=== PATIENT | male | born 1955 | race Caucasian/White ===

== ENCOUNTER 2018-10-13 15:59 | Inpatient (IN) | payer OTHER ==
--- NOTE | 2018-10-13 16:41 | EDPHY ---
H & P Stated Complaint: Increased swelling under left eye for 2 days. Source: Patient Exam Limitations: No limitations - Personal History Current Tetanus Diphtheria and Acellular Pertussis (TDAP): Yes - Medical/Surgical History Hx Asthma: No Hx Chronic Respiratory Disease: No Hx Diabetes: Yes Hx Cardiac Disease: No Hx Renal Disease: No Hx Cirrhosis: No Hx Alcoholism: No Hx HIV/AIDS: No Hx Splenectomy or Spleen Trauma: No Other PMH: DM 2. - Social History Smoking Status: Current every day smoker Time Seen by Provider: 10/13/18 16:38 HPI/ROS: HPI: This is a 63-year-old male who presents with Chief Complaint: Increased swelling under left eye for 2 days. Location: left eye Quality: Redness, swelling Duration: 2 days Signs and Symptoms: no fever, no nausea, no vomiting, no photophobia, no noise sensitivity, no neck stiffness, no ear pain, no tinnitus, no nasal congestion, no sinus pressure, no weakness, no radiation, no aura, no tinnitus Timing: Acute, stable Severity: Moderate Context: Patient has a history of type 2 diabetes mellitus presents at the urging of provider at [facility] ([place], [place]) dermatology for left religion abscess that is been there several weeks and now scabbed over with 2 day history of left suborbital redness and swelling that occurred when he woke up and has remained constant. He denies any headache, sinus congestion, rhinorrhea , vision changes, eye redness, eye tearing. Modifying Factors: None Comment: ROS: A comprehensive 10 system review of systems is otherwise negative aside from elements mentioned in the history of present illness. MEDICAL/SURGICAL/SOCIAL HISTORY: Medical history: Diabetes mellitus type 2, hyperlipidemia Surgical history: Denies Social history: Smoker. Family history noncontributory. General appearance: Overweight, nontoxic-appearing elderly white male, awake and alert, cooperative. HENT: Atraumatic and normocephalic, Nares patent; no rhinorrhea; no nasal mucosal edema. Tympanic membranes clear. Oropharynx clear, no exudate and moist pink mucosa. Edentulous. Airway patent. No lymphadenopathy. No meningismus. Visual Acuity: noted from Nurse's notes. Pupils: equal round and reactive to light. EOMI Lids: no edema or swelling Skin: no proptosis, no periorbital erythema; + left suborbital swelling/ emphysema/small bubble of the subcutaneous skin. no vesicles Conjunctivae: not injected, no discharge NEUROLOGICAL: no focal neuro deficits. GCS 15. Speech clear SKIN: Warm and dry, annular, scabbed, 2 mm raised area on the left religion; no erythema. no rash. Good capillary refill. (Lizzette Yip) Constitutional: Initial Vital Signs Temperature (C) 36.6 C 10/13/18 16:03 Heart Rate 88 10/13/18 16:03 Respiratory Rate 16 10/13/18 16:03 Blood Pressure 154/88 H 10/13/18 16:03 O2 Sat (%) 95 10/13/18 16:03 O2 Delivery Mode Room Air Allergies/Adverse Reactions: No Known Allergies Allergy (Unverified 10/13/18 16:06) Home Medications: Medication Instructions Recorded Atorvastatin Calcium [Lipitor 40 40 mg PO DAILY 10/13/18 mg (*)] metFORMIN SR [Glucophage XR 750 mg 750 mg PO DAILY@1800 10/13/18 (*)] Medical Decision Making Procedures: Procedure: Abscess drainage. The patient's abscess was located on the face. Risks, benefits, alternatives discussed with the patient and consent obtained. The abscess was incised with a #11 blade and a moderate amount of purulent drainage was expressed. The wound was irrigated and packed. The patient tolerated the procedure well. The procedure was performed by myself. Wound culture sent. (Melody Villafana) ED Course/Re-evaluation: Vital signs reviewed and shows mild elevated blood pressure upon arrival. IV access, laboratory studies, CT maxillofacial scan ordered 1715: Labs reviewed. WBC 12 K, sodium 130, creatinine 0.8, glucose 442 No signs of DKA. 1725: End of shift. Signed over to Dr. Villafana pending CT scan results and final disposition. This patient was seen under the supervision of my secondary supervising physician. I evaluated care for this patient attending. (Lizzette Yip) 1800: CT scan reveals a left temporal abscess with surrounding cellulitis extending into the periorbital area. The results were discussed with the patient. Abscess I+D performed by me. Wound culture sent. Dilaudid 0.5mg IV and Zofran 4mg IV for pain relief during procedure. Blood cultures were drawn and Vancomycin 1gm IV given. Does not meet SIRS criteria, lactate normal. The hospitalist service was consulted for admission. (Melody Villafana) Differential Diagnosis: Differential diagnosis includes but is not limited to left religion abscess, sinusitis, suborbital cellulitis. (Lizzette Yip) - Data Points Laboratory Results: Laboratory Results 10/13/18 16:45 10/13/18 16:45 Microbiology Results: MICROBIOLOGY 10/13/18 17:58 Face - Swab Gram Stain - Final Medications Given: Atorvastatin Calcium (Lipitor) 40 mg PO DAILY DARIN Stop: 04/12/19 08:59 Last Admin: 10/14/18 09:57 Dose: 40 mg Vancomycin HCl 1.5 gm/ Sodium (Chloride) 250 mls @ 166.667 mls/hr IV Q12H DARIN Stop: 11/13/18 04:59 Last Admin: 10/14/18 05:04 Dose: 250 mls Insulin Human Lispro (Humalog Lispro) 0 unit SC TIDMEAL DARIN PRN Reason: Protocol Stop: 04/12/19 07:59 Last Admin: 10/14/18 08:11 Dose: Not Given Discontinued Medications Hydromorphone HCl (Dilaudid) 1 mg IVP EDNOW ONE Stop: 10/13/18 17:58 Last Admin: 10/13/18 17:58 Dose: 1 mg Vancomycin/Sodium Chloride (Vancomycin 1 Gm (Premix)) 250 mls @ 250 mls/hr IV EDNOW ONE PRN Reason: Protocol Stop: 10/13/18 19:03 Last Admin: 10/13/18 18:55 Dose: 250 mls Piperacillin/Tazobactam/Dextrose (Zosyn 3.375 Gm (Premix)) 50 mls @ 100 mls/hr IV EDNOW ONE PRN Reason: Protocol Stop: 10/13/18 18:30 Last Admin: 10/13/18 18:30 Dose: 50 mls Sodium Chloride (Ns) 1,000 mls @ 3,000 mls/hr IV ONCE ONE Stop: 10/13/18 19:21 Last Admin: 10/13/18 22:04 Dose: 1,000 mls Point of Care Test Results: Chemistry 10/13/18 17:09 POC Sodium 134 mEq/L L mEq/L (135-145) POC Potassium 4.0 mEq/L mEq/L (3.3-5.0) POC Chloride 94 mEq/L L mEq/L (97-110) POC Total CO2 24 mEq/L mEq/L (22-31) POC BUN 18 mg/dL mg/dL (7-23) POC Creatinine 0.7 mg/dL mg/dL (0.7-1.3) POC Glucose 443 mg/dL H mg/dL (70-100) ISTAT H&H 10/13/18 17:09 POC Hgb 16.0 gm/dL gm/dL (13.7-17.5) POC Hct 47 % % (40-51) Departure - Departure Disposition: [facility] Inpatient Acute Clinical Impression: Cellulitis and abscess of face Condition: Fair
[2018-10-13 17:10] LABS: PLATELET COUNT 183 10^3/uL (150-400)
[2018-10-13] MEDS ORDERED: HYDROmorphONE/DILAUDID 1 MG/ML INJ ONE (17:55)
[2018-10-13] MEDS ORDERED: HYDROmorphONE/DILAUDID 1 MG/ML INJ IVP ONE (17:57)
[2018-10-13] MEDS ORDERED: PIPERACILLIN/TAZO 3.375 GM/DEX 50 ML IV ONE (18:01)
[2018-10-13] MEDS ORDERED: VANCOMYCIN HCL/NORMAL SALINE 250 ML IV ONE (18:04)
[2018-10-13] MEDS ORDERED: oxyCODONE IR 5 MG TAB PO PRN (18:52)
[2018-10-13] MEDS ORDERED: ONDANSETRON DISINTEGRATING 4 MG TAB PO PRN (18:52)
[2018-10-13] MEDS ORDERED: ACETAMINOPHEN 325 MG TAB PO PRN (18:52)
[2018-10-13] MEDS ORDERED: ONDANSETRON 4 MG/2 ML VIAL IVP PRN (18:52)
[2018-10-13] MEDS ORDERED: D50W 25 GM/50 ML SYR IVP PRN (18:53)
[2018-10-13] MEDS ORDERED: NS 1,000 ML IV ONE (19:02)
--- NOTE | 2018-10-13 19:22 | GHP ---
[f rep st] HISTORY AND PHYSICAL DATE OF ADMISSION: 10/13/2018 CHIEF COMPLAINT: Facial abscess. HISTORY OF PRESENT ILLNESS: This is a 63-year-old man, who presents with a facial abscess. He has h ad a "boil" on the left side of his face for a few weeks. About 2 days ago, it "blew up," became jose manuel y painful, and got much larger. He woke up with swelling below his eye about 1 day ago. He is diabe tic, but does not check his blood sugars ever. He has not had any fevers. He relates A1c is in the 11 to 12 range. He has no change in his vision and no eye pain. PAST MEDICAL/SURGICAL HISTORY: 1. Diabetes mellitus as above. 2. Hyperlipidemia. Not taking his Lipitor. 3. C-spine fusion. MEDICATIONS: Please see medication reconciliation. ALLERGIES: No known drug allergies. FAMILY HISTORY: Reviewed and noncontributory. SOCIAL HISTORY: He smokes tobacco. He occasionally drinks alcohol. REVIEW OF SYSTEMS: A 10-point review of systems is conducted and is negative except per HPI. PHYSICAL EXAM: VITAL SIGNS: Blood pressure 165/99, heart rate 74, respiration rate 18, saturating 9 8% on room air, and temperature 36.6. GENERAL: The patient is a pleasant man, who is resting comfor tably in no acute distress. HEENT: Exam shows him to have a Band-Aid over a mild area of erythema a nd fluctuance in the left temporal area. He does have some edema below his left eye. He does not peterson ve any pustulants is or edema in the conjunctiva or orbit itself. CARDIOVASCULAR: Exam shows regula r rate and rhythm. No murmurs, rubs, or gallops. PULMONARY: Lungs are clear to auscultation bilate rally. ABDOMEN: Soft, nontender, and nondistended. He is obese. SKIN: Exam shows no rash. : Exam shows no Lugo. NEUROLOGIC: Exam shows him to be alert and oriented x3. He is moving all extr emities. PSYCHIATRIC: Exam shows normal mood and affect. LABS: White count is 11.9 with no left shift. Sodium is 130, chloride 95, and glucose 442. LFTs ar e normal. DATA: 1. Discussed with Dr. Villafana. Will admit to med/surg. 2. I reviewed his face CT. This shows a left temporal periauricular abscess with inflammatory stran ding extending anterior to the infraorbital region, but there is no infraorbital inflammation and no orbital involvement identified on the CT scan. IMPRESSION/PLAN: 1. Facial cellulitis and abscess: He is being covered broadly in the emergency department with vanc omycin, as well as Zosyn. This was incised and drained in the emergency department. I think this is likely staphylococcus given the skin origin of this. I will continue vancomycin alone for now, but followup on the Gram stain and culture results sent from the emergency department. He did have blood cultures drawn, as well. I have also placed an Infectious Disease consult given the location of vanessa s. I do not think that he has any ocular involvement at this time. If he does develop any vision ch anges, would emergently consult Ophthalmology. 2. Diabetes mellitus type 2, uncontrolled: We will continue his metformin and place him on sliding scale insulin here. 3. Hyponatremia: This is mild. I suspect that this will resolve with a small amount of intravenous fluid. 4. Hyperlipidemia: Continue his Lipitor now. /[id number]/MODL
[2018-10-14] MEDS: VANCOMYCIN 1.5 GM in NS 250 ML IV SCH ×2 (05:04→16:54)
[2018-10-14] MEDS: INSULIN LISPRO 100 UNIT/ML SC SCH ×3 (08:11→17:03)
[2018-10-14] MEDS: ATORVASTATIN CALCIUM 40 MG TAB PO SCH (09:57)
--- NOTE | 2018-10-14 12:55 | PDCONSULT ---
[facility] Order Selector Note: Infectious Diseases Consult Note Impression: 63-year-old man with left temporal abscess with surrounding cellulitis and extension of erythema and edema the left periorbital region without radiographic evidence of orbital involvement. Will continue with vancomycin pending identification of gram-positive cocci from debridement Goodrich term in whether he has MRSA or MSSA is most likely pathogens with purulent cellulitis. Extensive discussion with patient and family member at bedside about the role of poorly controlled diabetes in the development and recurrence of this type of skin and soft tissue infection. 1. Left temporal abscess with surrounding cellulitis 2. Left temporal abscess status post bedside debridement emergency department on 10/13/18 3. Poorly controlled diabetes mellitus 4. Immune-compromised patient due to poorly controlled diabetes Plan: 1. Continue vancomycin pending identification of gram-positive coxae on Gram stain 2. Reviewed in detail potential side effects of vancomycin to include: allergy, rash, nausea, antibiotic-associated diarrhea, Clostridioides difficile colitis, acute kidney injury. 3. Discussed in detail with patient and family member at bedside the need to control blood glucose levels over time and get better diabetes control to prevent recurrence of this infection in infections or other sites 4. Discussed in detail with patient and family member at bedside the role of smoking cessation in preventing recurrent infections and allowing healing 5. Wound Care consult, prefer to not packed the wound and allowed to drain freely Bakari Munoz MD Infectious Diseases Chief Complaint: Left anglican abscess Requesting Provider: Dr. Persaud Reason for Referral: Consultation was requested by Dr. Persaud regarding antimicrobial management. HPI: 63-year-old man who presents to hospital with left temporal abscess with surrounding cellulitis that rapidly accelerated in severity over the 2 days prior to admission but has been present for approximately 3 weeks. The left temporal abscess was incised and drained in the emergency department resulting purulent fluid which was sent for culture revealing gram-positive cocci with no growth in culture at less than 24 hr of incubation. He notes no previous known history of MRSA infection although he does have recurrent pustular lesions that developed on his abdomen that he pops and resolve on their own. Chronology of Present Illness: Location of symptoms: Left temporal area and left periorbital region Onset of symptoms: Initial painful papular lesion approximately 3 weeks prior to admission, progression to spreading induration and left periorbital edema approximately 2 days prior to admission Initial signs/symptoms: Initial lesion at left anglican was a raised papule that was attempted to be squeezed dry like a pimple with slowly spreading induration and pain to palpation Associated signs/symptoms at onset: No visual changes in the left eye, no left ear fullness or decreased hearing, no fever or chills, no pain in the left jaw, no headaches, no sinus fullness or pain, no ocular pain on the left or right Changes since onset: Changes in the 2 days prior to admission include the spreading erythema and edema from the left temporal site to include the left periorbital region, increased pain in the left temporal region, left-sided headache that seems centered at the site of the left temporal lesion Exacerbating factors: Palpation increase the pain, attempts to squeeze and expel fluid from the initial papular lesion resulted in pain Relieving factors: None identified Antibiotics since symptom onset: Vancomycin and piperacillin/tazobactam at admission, no outpatient antibiotics related to this lesion and no outpatient antibiotics over the last few years Change in symptoms with antibiotics: Decreased sensation of left periorbital edema Relevant social history: Continues with poor diet which includes high sugar sodas and Gatorade, in addition to fast food Relevant PMHx/PSHx: Poorly controlled diabetes mellitus is not taken metformin for over 2 months, recurrent abdominal wall boils Reviewed patient medical records in [facility], and [facility] Information Organization ([facility] Past Medical History: Poorly controlled diabetes mellitus, prescribed metformin but has not taken for at least 2 months; hyperlipidemia for which he was prescribed Lipitor has not taken for at least 2 months Past Surgical History: Cervical spinal fusion in the remote past Social History: Smokes 1.5 packs of cigarettes daily; Does not consume marijuana products; Drinks alcohol rarely; Does not use any other drugs currently or in the past Family History: No family members with recurrent infections Allergies: NKDA Medications: Reviewed in medical record and confirmed with patient. ROS: 10 organ systems reviewed; pertinent positives and negatives listed in the HPI, all other organ systems negative. Physical Exam: VS: Reviewed Gen: No acute distress; Breathing comfortably without supplemental oxygen; Able to speak in complete sentences Eyes: No conjunctival injection; No scleral icterus; no pain with extraocular muscle movements HENT: Left temporal abscess drainage site with packing in place, surrounding induration extending just anterior to the year with approximately 1.5 cm greatest diameter, left periorbital edema predominantly the infraorbital area, the soft tissue swelling without induration; no erythema involving any aspect of the nose including the external nares Neck: No limitation in range of motion Pulm: Audible inspiratory sounds to the bases bilaterally; No wheeze, rhonchi, or rales CV: Normal S1 and S2; Regular rate and rhythm; No murmurs, rubs, or gallops; No lower extremity edema Abd: Distended; Normo-active bowel sounds; Soft; Non-tender; ventral hernia reducible by palpation; scattered cutaneous scars Skin: A full skin exam including exposed bilateral upper extremities, bilateral lower extremities to the knees, face, neck, abdomen, chest, and back performed; Skin intact, warm, with no rash MSK: Joints without erythema or edema; No gross limitation in range of motion Ext: No clubbing or cyanosis Neuro: Awake and alert Psych: Normal mood and affect Labs/Imaging: All microbiology testing (culture and non-culture) reviewed in the medical record. Personally reviewed and interpreted the images of the following radiographs: Facial CT obtained at admission showing the left temporal abscess Medications Generic Name Dose Route Start Last Admin Trade Name Freq PRN Reason Stop Dose Admin Vancomycin HCl 1.5 gm/ Sodium 250 mls @ 166.667 mls/hr 10/14/18 05:00 05:04 Chloride IV 11/13/18 04:59 250 mls Q12H DARIN Discontinued Medications Generic Name Dose Route Start Last Admin Trade Name Freq PRN Reason Stop Dose Admin Piperacillin/Tazobactam/Dextrose 50 mls @ 100 mls/hr 10/13/18 18:01 10/13/18 18:30 Zosyn 3.375 Gm (Premix) IV 10/13/18 18:30 50 mls EDNOW ONE Protocol Vancomycin/Sodium Chloride 250 mls @ 250 mls/hr 10/13/18 18:04 10/13/18 18:55 Vancomycin 1 Gm (Premix) IV 10/13/18 19:03 250 mls EDNOW ONE Protocol Microbiology 10/13/18 17:58 Face - Swab Gram Stain - Final Laboratory Tests 10/13/18 10/13/18 10/13/18 16:45 16:45 17:09 WBC 11.90 H Hgb 15.8 Plt Count 183 Creatinine 0.8 POC Creatinine 0.7 Glucose 442 H POC Glucose 443 H AST 17 ALT 30 Ongoing monitoring for antimicrobial toxicity with: CBC, BMP.
--- NOTE | 2018-10-14 13:19 | WOCRNPDOC ---
WOCRN Advanced Assessment Note - Skin Integrity Problem, Advanced Assess Left Lateral Face Dressing Type: Open to Air Exudate Amount: Moderate Exudate Color: Yellow, Red Exudate Characteristic(s): Serosanguinous Rosa Wound Tissue: Erythema (extending out 2 cm circumferential to wound), Swollen Rosa Wound Swelling: Moderate Site Odor: None Site Measurement - Head-to-Toe Length X Width X Depth (cm): 0.4x0.4x1 Skin Integrity Problem Comment: Discreet wound. Moderate amount of serosanguineous fluid spilled out when pressing on periwound tissue. Cleaned with ns and gauze. Requested by ID doc to not pack wound. Silvasorb applied to wound. RN to apply foam dressing sent. Radha ALSTON in room for care. Wound care will follow.
--- NOTE | 2018-10-14 14:44 | HOSPPROG ---
Hospitalist Progress Note Assessment/Plan: 1. Facial Cellulitis and Abscess - S/p I&D by Dr. Villafana in ED on admission - Initially given Vanc and Zosyn in ED, continue Vancomycin - Gram stain and Blood cultures collected, f/u results - ID consulted this AM, recommending continued Vancomycin, await culture speciation prior to transition to PO abx - CT on admission showing no ocular involvement, continue to monitor, if vision changes, would emergently consult Ophthalmology 2. T2DM, Uncontrolled - A1c 11-12 per patient - BG 443 on admission, in the 200's so far today - Continue home Metformin, SSI ordered - Will definitely require long acting insulin in the future, will defer to outpatient for initiation - Lifestyle changes discussed with patient today given infection above 3. Hyponatremia - Na 130 on admission, 134 this AM - S/p IVF - Continue to monitor 4. HLD - Continue Atorvastatin FEN: IVF PRN, Carb Consistent DVT Ppx: Lovenox COde: FULL Dispo: Pending clinical course Subjective: Patient reports improvement in L sided facial pain this AM Objective: Vital Signs Temp Pulse Resp BP Pulse Ox 37.1 C 68 18 135/87 H 96 10/14/18 11:18 10/14/18 11:18 10/14/18 11:18 10/14/18 11:18 10/14/18 11:18 10/13/18 10/14/18 10/15/18 05:59 05:59 05:59 Intake Total 1800 Output Total 1300 Balance 500 - Physical Exam Constitutional: no apparent distress, obese Eyes: PERRL Ears, Nose, Mouth, Throat: moist mucous membranes Cardiovascular: regular rate and rhythym Respiratory: no respiratory distress Gastrointestinal: soft, non-tender abdomen Skin: warm, erythema, other (L sided facial abscess with packing around L jewish ) Musculoskeletal: full muscle strength Neurologic: AAOx3 Psychiatric: interacting appropriately ICD10 Worksheet Patient Problems: Problems Problem Status Onset Cellulitis and abscess of face Acute
--- NOTE | 2018-10-14 15:19 | ASMTCMCOM ---
CM Note CM Note Notes: Met with patient and and discussed with MD in morning rounds. Patient is currently receiving IV abx, awaiting cultures and will likely transition to oral abx. Patient is eager to discharge home, no anticipated needs at this time. CM will continue to follow should needs arise. Plan: Likely Independent Date Signed: 10/14/2018 03:19 PM Electronically Signed By:Patt Botello RN
--- NOTE | 2018-10-14 15:29 | PDMN ---
Medical Necessity Medical necessity: [facility] [place] M70 cellulitis: 63 yo M with facial cellulitis/ abscess CT shows periauricular abscess with inflammatory stranding extending to the infrorbital region, no orbital involvement at this point. pt had emergent I/D in ED with IV abx started Bld cx drawn- ID consult- cont IV abx. status changed to INPT 10/14/18 for ongoing med nec care > 2 MN in pt with facial cellulitis surrounding orbital region with uncontrolled DM( A1c in the 11 -12 range per pt- admit glucose 442- ) , further monitoring and tx needed.
[2018-10-14] MEDS ORDERED: metFORMIN SR 750 MG TAB.SR PO SCH (18:00)
[2018-10-14] MEDS: ceFAZolin 2 GM/DEXTROSE 100 ML IV SCH (19:10)
[2018-10-15] MEDS: ceFAZolin 2 GM/DEXTROSE 100 ML IV SCH (02:54)
[2018-10-15 05:25] LABS: PLATELET COUNT 169 10^3/uL (150-400)
[2018-10-15] MEDS: ATORVASTATIN CALCIUM 40 MG TAB PO SCH (08:56)
[2018-10-15] MEDS: INSULIN LISPRO 100 UNIT/ML SC SCH (09:01)
--- NOTE | 2018-10-15 10:18 | PDIAF ---
- Diagnosis Code Status: Full Code - Medication Management Mcfp Antibiotics: doxycycline 100mg PO BID Medical Policy Specialist Antibiotic Stop Date: 10/25/18 Discharge Medications: electronically signed and located in the Home Medication List. PICC Care - Routine: N/A - Follow Up Care Current Providers and Referrals: Mila Little MD [Primary Care Provider] - Bakari Munoz MD [Medical Doctor] - 10/22/18 3:00 pm
--- NOTE | 2018-10-15 10:33 | ASMTCMCOM ---
CM Note CM Note Notes: Pt now on PO antibiotic and is discharging Home with . No needs identified but here if some arise. PLAN Home independently with . Date Signed: 10/15/2018 10:32 AM Electronically Signed By:Lorena Fallon
[2018-10-15 11:39] VITALS: BP 143/81
--- NOTE | 2018-10-15 11:47 | PCMIDPN ---
Assessment/Plan: Assessment: 63-year-old man with left temporal abscess secondary to MSSA with surrounding cellulitis and extension of erythema and edema to the left periorbital region. No radiographic evidence orbital involvement. Overall he has improved with cultures preliminarily showing methicillin-susceptible Staph aureus. He has no systemic signs or symptoms of uncontrolled infection and he is tolerating oral intake without diarrhea. We can transition to oral therapy presumptively based on our antibiogram expect doxycycline to be very active and have adequate tissue penetration. He will also follow up with wound care as an outpatient and with his ID provider in approximately 1 week. Prefer to leave the wound unpacked and allow any residual drainage to drain from the wound. 1. Left temporal abscess with surrounding cellulitis secondary to Staphylococcus aureus (MSSA) 2. Status post bedside debridement emergency department 10/13/2018 3. Poorly controlled diabetes mellitus 4. Immune compromised patient due to poorly controlled diabetes Plan: 1. Continue cefazolin 2 g q.8 hours while he remains inpatient 2. Discharge on doxycycline 100 mg p.o. Twice daily through 10/25/2018 3. Infectious disease follow-up arranged for 10/22 4. Reviewed in detail potential side effects of doxycycline to include: allergy , rash, nausea, antibiotic-associated diarrhea, Clostridioides difficile colitis , photosensitivity, heart burn, pigmented rash. Bakari Munoz MD Infectious Diseases 10/15/18 11:44 Subjective: No fever or chills in the past 24-hours. Tolerating oral diet with solids and liquids. No diarrhea, nausea, or other GI symptoms. No rash. Appetite normal. Ambulating without difficulty. Decreased pain over the left restorationism to the degree that he was able to sleep on his left side without discomfort. Significantly improved left periorbital edema with no orbital pain with extraocular muscle movement. Objective: Vital Signs Temp Pulse Resp BP Pulse Ox 37 C 65 16 143/81 H 91 L 10/15/18 11:30 10/15/18 11:30 10/15/18 11:30 10/15/18 11:30 10/15/18 11:30 Laboratory Results 10/15/18 04:28 10/14/18 10/15/18 10/16/18 05:59 05:59 05:59 Intake Total 1200 Output Total 350 375 Balance 850 -375 Medications Generic Name Dose Route Start Last Admin Trade Name Freq PRN Reason Stop Dose Admin Doxycycline Hyclate 100 mg 10/15/18 21:00 Doxycycline Hyclate PO 11/14/18 20:59 BID [facility] Protocol Discontinued Medications Generic Name Dose Route Start Last Admin Trade Name Freq PRN Reason Stop Dose Admin Cefazolin Sodium/Dextrose 100 mls @ 200 mls/hr 10/14/18 19:00 10/15/18 02:54 Ancef IV 11/13/18 18:59 100 mls Q8H [facility] Protocol Vancomycin HCl 1.5 gm/ Sodium 250 mls @ 166.667 mls/hr 10/14/18 05:00 16:54 Chloride IV 11/13/18 04:59 250 mls Q12H [facility] Microbiology 10/13/18 17:58 Face - Swab Gram Stain - Final 10/13/18 18:30 Blood Blood Culture - Preliminary 10/13/18 18:20 Blood Blood Culture - Preliminary 10/13/18 17:58 Face - Swab Wound Culture - Preliminary Staphylococcus Aureus Laboratory Tests 10/13/18 10/15/18 16:45 04:28 WBC 11.90 H 7.35 Hgb 15.8 14.2 Plt Count 183 169 - Physical Exam General Appearance: no apparent distress, non-toxic EENT: No scleral icterus Respiratory: No respiratory distress, No accessory muscle use Neck: full range of motion, supple Skin: No other (Left temporal abscess area with decreased extent of erythema, decreased area of induration, able to express a small amount of purulent fluid after removing a soft scabbed that developed overnight; left periocular edema and erythema decreased significantly from 1 day prior) Neuro/Psych: alert, normal mood/affect, oriented x 3, No confused - Time Spent With Patient Time Spent with Patient: greater than 25 minutes Time Spent with Patient: Greater than 25 minutes spent on this patients care, greater than 50% of time spent counseling, educating, and coordinating care regarding the above mentioned plan. ICD10 Worksheet Patient Problems: Problems Problem Status Onset Cellulitis and abscess of face Acute
--- NOTE | 2018-10-15 13:09 | PDDCSUM ---
Discharge Summary Discharge Summary: Date of Admission: 10/13/2018 Date of Discharge: 10/15/2018 Consults: ID Procedures: CT Face, L denominational abscess I&D Followup: ID f/u 10/22, PCP Hospital Course Problem List: 1. Facial Cellulitis and Abscess - S/p I&D by Dr. Villafana in ED on admission - Initially given Vanc and Zosyn in ED, switched to Cefazolin on 10/13 due to MSSA in wound culture - ID consulted, recommended discharge on Doxycycline 100 mg BID until 10/25/2018 2. T2DM, Uncontrolled - A1c 11-12 per patient, repeat still pending upon discharge - BG 443 on admission, in the 300's so far today - Continue home Metformin, SSI ordered - Will definitely require long acting insulin in the future, will defer to outpatient for initiation - Lifestyle changes discussed with patient given infection above 3. Hyponatremia - Na 130 on admission, 134 yesterday AM - S/p IVF 4. HLD - Continue Atorvastatin Time spent on discharge was >35 minutes with >50% of time spent on patient education and counseling.
[2018-10-15] MEDS ORDERED: DOXYCYCLINE HYCLATE 100 MG CAP/TAB PO SCH (21:00)
== END 2018-10-15 12:36 | disposition home or self-care (01) | DRG 580 ==
LOC: INTOOBSV 18:05 → F1N 20:48 → OBSVTOIN 10-14 15:20
PROVIDERS: ADMIT Student in an Organized Health Care Education/Training Program; ATTEND Internal Medicine
PROC: 0J900ZZ Drainage of Scalp Subcutaneous Tissue and Fascia, Open Approach (ICD-10-PCS; principal; 2018-10-13)
DX: L02.01 Cutaneous abscess of face (principal); B95.61 Methicillin susceptible Staphylococcus aureus infection as the cause of diseases classified elsewhere; L03.211 Cellulitis of face; E11.65 Type 2 diabetes mellitus with hyperglycemia; Z79.84 Long term (current) use of oral hypoglycemic drugs; E87.1 Hypo-osmolality and hyponatremia; E78.5 Hyperlipidemia, unspecified; F17.210 Nicotine dependence, cigarettes, uncomplicated
CPT/HCPCS: 82435-PO; 82565-PO; 82947-PO; 84132-PO; 84295-PO; 84520-PO; 85014-ER; 96365; G0378; J0690; J1170; J2543; J3370